=== PATIENT | female | born 1970 | race Caucasian/White ===

== ENCOUNTER 2022-06-26 11:44 | Emergency (ER) | payer BC, OTHER ==
[2022-06-26 12:52] VITALS: BP 141/117; PULSE 85; RESP 18; TEMP 98.6; BMI 24.7
== END 2022-06-26 16:35 | disposition home or self-care (01) ==
LOC: JCOVINFU 11:44 → JER 11:44
DX: U07.1 COVID-19 (principal)
CPT/HCPCS: 0241U-QW; 99283-25

== ENCOUNTER 2023-05-12 09:54 | Emergency (ER) | payer OTHER ==
[2023-05-12 10:21] VITALS: TEMP 97.9; BMI 24.7
[2023-05-12] MEDS ORDERED: ACETAMINOPHEN 500 MG TABLET (FP) PO ONE (11:18)
[2023-05-12] MEDS ORDERED: LOSARTAN POTASSIUM 50 MG TABLET PO ONE (11:29)
[2023-05-12] MEDS ORDERED: ACETAMINOPHEN 500 MG TABLET (FP) ONE (11:56)
[2023-05-12] MEDS ORDERED: LOSARTAN POTASSIUM 50 MG TABLET ONE (11:57)
[2023-05-12 12:49] LABS: BASO % 0.3 % (0-2.0); EOS % 0.5 % (0-4.5); HEMATOCRIT 46.7 % (32.4-45.2); HEMOGLOBIN 15.9 GM/dL (10.7-15.3); MCH 33.4 pg (25.7-33.7); MEAN CELL VOLUME 98.1 fl (80-96); MEAN PLT VOLUME 8.1 fl (7.5-11.1); MONO % 5.2 % (3.8-10.2); PLATELET COUNT 351 10^3/uL (134-434); RBC 4.76 M/mm3 (3.60-5.2); RDW 13.4 % (11.6-15.6)
[2023-05-12 13:09] LABS: POTASSIUM 4.7 mmol/L (3.5-5.1)
[2023-05-12 13:11] LABS: BLOOD UREA NITROGEN 17.1 mg/dL (7-18); CALCIUM 9.9 mg/dL (8.5-10.1)
[2023-05-12 13:12] LABS: ALBUMIN 4.4 g/dl (3.4-5.0)
[2023-05-12 13:15] LABS: CREATININE 0.8 mg/dL (0.55-1.3)
[2023-05-12 13:17] LABS: BILIRUBIN,TOTAL 0.8 mg/dL (0.2-1); TOT PROT 8.4 g/dl (6.4-8.2)
[2023-05-12] MEDS ORDERED: IBUPROFEN 600 MG TABLET (FP) PO ONE ×2 (15:08→15:13)
[2023-05-12 16:08] VITALS: BP 142/86; PULSE 73; RESP 16
== END 2023-05-12 16:18 | disposition home or self-care (01) ==
LOC: JER 09:54
DX: R06.02 Shortness of breath (principal); M54.6 Pain in thoracic spine; R11.0 Nausea; R07.1 Chest pain on breathing
CPT/HCPCS: 36415; 71046-TC-FY; 80053; 84484; 85025; 85379; 93005; 93010; 99285-25

== ENCOUNTER 2024-02-11 18:15 | Emergency (ER) | payer OTHER ==
[2024-02-11 18:23] VITALS: BP 171/112; PULSE 97; RESP 18; TEMP 98.4; BMI 25.6
[2024-02-11] MEDS: LIDOCAINE 5% TOPICAL PATCH TP ONE (20:01)
[2024-02-11] MEDS: ACETAMINOPHEN 325 MG TABLET (FP) PO ONE (20:01)
[2024-02-11] MEDS ORDERED: ACETAMINOPHEN 325 MG TABLET (FP) ONE (20:02)
[2024-02-11] MEDS ORDERED: LIDOCAINE 4% PATCH TP ONE (20:03)
[2024-02-11] MEDS ORDERED: DIPHTH,PERTUSS(ACELL),TET 0.5 ML DISP.SYRIN IM ONE (20:49)
[2024-02-11] MEDS: DIPHTH,PERTUSS(ACELL),TET 0.5 ML DISP.SYRIN IM ONE (20:53)
[2024-02-12] MEDS ORDERED: LIDOCAINE PATCH REMOVAL MC SCH (08:00)
== END 2024-02-11 21:00 | disposition home or self-care (01) ==
LOC: JER 18:15
PROC: 3E0234Z Introduction of Serum, Toxoid and Vaccine into Muscle, Percutaneous Approach (ICD-10-PCS; principal; 2024-02-11)
DX: S01.00XA Unspecified open wound of scalp, initial encounter (principal); W18.2XXA Fall in (into) shower or empty bathtub, initial encounter; Z23 Encounter for immunization
CPT/HCPCS: 90471; 90715; 99283-25

== ENCOUNTER 2024-04-06 10:13 | Emergency (ER) | payer OTHER ==
[2024-04-06] MEDS ORDERED: KETOROLAC TROMETHAMINE 30 MG/1 ML VIAL ONE (11:36)
[2024-04-06] MEDS: KETOROLAC TROMETHAMINE 30 MG/1 ML VIAL IM ONE (11:44)
[2024-04-06 11:50] VITALS: BP 160/102; PULSE 98; RESP 20; TEMP 98.6; BMI 25.6
== END 2024-04-06 12:01 | disposition home or self-care (01) ==
LOC: JERFT 10:13
PROC: 3E0133Z Introduction of Anti-inflammatory into Subcutaneous Tissue, Percutaneous Approach (ICD-10-PCS; principal; 2024-04-06)
DX: S49.91XA Unspecified injury of right shoulder and upper arm, initial encounter (principal); W20.8XXA Other cause of strike by thrown, projected or falling object, initial encounter
CPT/HCPCS: 99284-25